=== PATIENT | female | born 1980 | race Caucasian/White ===

== ENCOUNTER → 2016-10-17 | Outpatient (CLI) | payer MEDICARE ==
[~2016-10-17] MED LIST: CLONAZEPAM0.5 MG PO; DULOXETINE HCL60 M1 PO; HYDROXYZINE HCL25 M1 PO; NEURONTIN600 MG PO; PROAIR HFA8.5 GM INH; TRAZODONE HCL150 MG PO; VESICARE5 MG PO
[2016-10-17 12:45] LABS: CHOLESTEROL 154 mg/dL (0-200); GLUCOSE FASTING 94 mg/dL (70-110); HDL CHOLESTEROL 51 mg/dL (35-95); LDL CHOLESTEROL 79 mg/dL (-130); LDL/HDL RATIO 2 RATIO (0-4); TRIGLYCERIDES 122 mg/dL (10-160)
== END | disposition home or self-care (01) ==
LOC: CLAB 11:52
PROVIDERS: Surgery
DX: E66.01 Morbid (severe) obesity due to excess calories (principal)
CPT/HCPCS: 36415; 80061; 82947